=== PATIENT | female | born 1955 | race Caucasian/White ===

== ENCOUNTER 2023-02-14 09:30 | Outpatient (OUT) | payer MEDICARE, OTHER, SELFPAY ==
--- NOTE | 2023-02-14 09:35 | MM_ITS ---
Patient: HAYLEE VICENTE Exam Date: 02/14/2023 : 1955 Gender:F Ordering : DR IGNACIO DSOUZA Admission #: [id number] Family : Order #: [id number] CLICK HERE TO VIEW EXAM RADIOLOGY REPORT PROCEDURE: MM TOMOSYNTHESIS SCREENING BI COMPARISON: MG MAMM SCREEN HAYDEE W CAD, 02/27/2020. MG MAMM SCREEN 3D HAYDEE CAD, 03/17/2021. INDICATIONS: Screening Calculator Name NCI Breast Cancer Risk Assessment Tool 5 Year Breast Cancer Risk 1.50% Lifetime Breast Cancer Risk 4.80% Personal Breast Cancer No Personal Ovarian Cancer No Treatments None Family Cancers None LOCATION: [facility] BREAST COMPOSITION: Scattered areas fibroglandular density. FINDINGS: DIAGNOSTIC CATEGORY 1--NEGATIVE. NO CHANGE FROM COMPARISON ASSESSMENT. Scattered benign-appearing calcifications are present. RIGHT BREAST: No significant suspicious finding. LEFT BREAST: No significant suspicious finding. RECOMMENDATIONS: ROUTINE MAMMOGRAM AND CLINICAL EVALUATION IN 12 MONTHS. PLEASE NOTE: A NORMAL MAMMOGRAM DOES NOT EXCLUDE THE POSSIBILITY OF BREAST CANCER. A CLINICALLY SUSPICIOUS PALPABLE LUMP SHOULD BE BIOPSIED. Dictated by: Luis Nino MD on 02/14/2023 at 12:16 Approved by: Luis Nino MD on 02/14/2023 at 12:17
[2023-02-14 12:32] LABS: Alanine Aminotransferase 21 U/L (14-59); Albumin Globulin Ratio 0.9; Albumin Level 3.5 g/dL (3.4-5.0); Alkaline Phosphatase 103 U/L (46-116); Anion Gap 9.8; Aspartate Amino Transferase 16 U/L (15-37); Bilirubin Total 0.4 mg/dL (0.2-1.0); Calcium 8.7 mg/dL (8.5-10.1); Carbon Dioxide 28.9 mmol/L (21.0-32.0); Chloride 104 mmol/L (98-107); Chol HDL Ratio 3.3; Cholesterol 194 mg/dL (<=200); Estimated GFR (African America 49 (>=60); Estimated GFR (Non-African Ame 40 (>=60); Globulin 3.9 g/dL; Glucose 86 mg/dL (74-106); HDL Cholesterol 59 mg/dL (40-60); LDL Cholesterol Calculated 119.8 mg/dL; Potassium 4.7 mmol/L (3.5-5.1); Sodium 138 mmol/L (136-145); Total Protein 7.4 g/dL (6.4-8.2); Triglycerides 76 mg/dL (<=150); VLDL CHOLESTEROL 15.2 mg/dL
== END 2023-02-14 09:31 | disposition home or self-care (01) ==
LOC: MAMMO 09:30
PROVIDERS: PCP Family Medicine; Visit Provider Family Medicine
DX: Z12.31 Encounter for screening mammogram for malignant neoplasm of breast (principal); I10 Essential (primary) hypertension; E78.00 Pure hypercholesterolemia, unspecified
CPT/HCPCS: 36415; 77063; 77067; 80053; 80061

== ENCOUNTER 2024-02-23 11:00 | Outpatient (OUT) | payer MEDICARE, OTHER, SELFPAY ==
--- NOTE | 2024-02-23 11:02 | MM_ITS ---
Patient Name: HAYLEE VICENTE MR#: [id number] : 1955 Exam Date: 02/23/2024 Ordering Doctor: DR IGNACIO DSOUZA RADIOLOGY REPORT PROCEDURE: MM TOMOSYNTHESIS SCREENING BI COMPARISON: MM TOMOSYNTHESIS SCREENING BI, 02/14/2023. MG MAMM SCREEN 3D HAYDEE CAD, 03/17/2021. MG MAMM SCREEN HAYDEE W CAD, 02/27/2020. MG MAMM HAYDEE SCRN W CAD DIG, 01/07/2014. INDICATIONS: Screening Calculator Name NCI Breast Cancer Risk Assessment Tool 5 Year Breast Cancer Risk 1.50% Lifetime Breast Cancer Risk 4.50% Personal Breast Cancer No Personal Ovarian Cancer No Treatments None Family Cancers None LOCATION: [facility] BREAST COMPOSITION: There are scattered areas of fibroglandular density. FINDINGS: DIAGNOSTIC CATEGORY 1--NEGATIVE. RIGHT BREAST: No significant suspicious finding. No significant change has occurred. LEFT BREAST: No significant suspicious finding. No significant change has occurred. RECOMMENDATIONS: ROUTINE MAMMOGRAM AND CLINICAL EVALUATION IN 12 MONTHS. PLEASE NOTE: A NORMAL MAMMOGRAM DOES NOT EXCLUDE THE POSSIBILITY OF BREAST CANCER. A CLINICALLY SUSPICIOUS PALPABLE LUMP SHOULD BE BIOPSIED. Dictated by: Pierre Mullins M.D. on 02/23/2024 at 13:47 Approved by: Pierre Mullins M.D. on 02/23/2024 at 13:48
--- OUTSIDE RECORDS SUMMARY | 2024-02-23 11:05 | XMS_ITS | CCD ---
Author Organization [facility] Care Team Providers Care Client Services Administrator Name Role Phone YUNG, DR NOAM Dorsey Admitting Unavailable FURLONG, DR NOAM Dorsey Attending Unavailable FURLONG, DR NOAM Dosrey Primary Care Unavailable FURLONG, DR NOAM Dorsey Admitting Unavailable FURLONG, DR NOAM Dorsey Attending Unavailable FURLONG, DR NOAM Dorsey Consulting Unavailable FURLONG, DR NOAM Dorsey Primary Care Unavailable Furlong Noam UPTON Primary Care Provider NOAM GRANADOS Attending Unavailable FURLONG, NOAM Dorsey Referring Unavailable FURLONG, NOAM Dorsey Primary Care Unavailable FURLONGNOAM Referring Unavailable FURLONGNOAM Primary Care Unavailable Medications Current Medications Medication Drug Class(es) Dates Sig (Normalized) Sig (Original) amLODIPine 5 mg oral tablet (8 sources) Dihydropyridine Calcium Channel Sharita Start: 10-09-2022 End: 02-17-2024 take 1 tablet by mouth once daily amLODIPine (NORVASC) 5 mg tablet Indications: Essential (primary) hypertension TAKE 1 TABLET BY MOUTH EVERY DAY 90 tablet 1 02/17/2024 Active baclofen 10 mg oral tablet (8 sources) gamma-Aminobutyric Acid-ergic Agonist Start: 10-15-2023 End: 02-16-2024 take 1 tablet by mouth twice daily as needed baclofen (LIORESAL) 10 mg tablet Indications: Unspecified thoracic, thoracolumbar and lumbosacral intervertebral disc disorder TAKE 1 TABLET BY MOUTH TWICE A DAY NEEDED 180 tablet 02/16/2024 Active Start: 04-09-2023 End: 07-08-2023 take 1 tablet by mouth twice daily as needed baclofen (LIORESAL) 10 mg tablet Indications: Unspecified thoracic, thoracolumbar and lumbosacral intervertebral disc disorder take 1 tablet by mouth twice a day as needed 180 tablet 0 07/08/2023 Active calcium-vit D3-mag gly-zinc 400 mg-83.3 mcg -166.7 mg capsule (6 sources) calcium-vit D3-m ag gly-zinc 400 mg-83.3 mcg -166.7 mg capsule daily. Active calcium-vit D3-m ag gly-zinc 400 mg-83.3 mcg -166.7 mg capsule daily. 0 Active famotidine 40 mg oral tablet (7 sources) Histamine-2 Receptor Antagonist Start: 03-12-2023 End: 07-20-2023 take 1 tablet by mouth in the morning famotidine (PEPCID) 40 mg tablet Indications: Gastroesophageal reflux disease without esophagitis TAKE 1 TABLET (40 MG TOTAL) BY MOUTH IN THE MORNING 90 tablet 1 07/20/2023 Active hydrOXYzine hydrochloride 25 mg oral tablet (8 sources) Antihistamine Start: 10-15-2023 End: 02-16-2024 take 1 tablet by mouth every eight hours as needed for anxiety hydrOXYzine (ATARAX) 25 mg tablet Indications: Anxiety disorder, unspecified TAKE 1 TABLET BY MOUTH EVERY 8 HOURS NEEDED FOR ANXIETY 270 tablet 02/16/2024 Active Start: 04-09-2023 End: 07-08-2023 take 1 tablet by mouth every eight hours as needed for anxiety hydrOXYzine (ATARAX) 25 mg tablet Indications: Anxiety disorder, unspecified take 1 tablet by mouth every 8 hours as needed for anxiety 270 tablet 0 07/08/2023 Active lisinopril 40 mg oral tablet (7 sources) Angiotensin Converting Enzyme Inhibitor Start: 01-11-2023 End: 07-20-2023 take 1 tablet by mouth in the morning lisinopriL (PRINIVIL,ZESTRIL) 40 mg tablet Indications: Essential (primary) hypertension TAKE 1 TABLET (40 MG TOTAL) BY MOUTH IN THE MORNING 90 tablet 1 07/20/2023 Active lovastatin 20 mg oral tablet (7 sources) HMG-CoA Reductase Inhibitor Start: 04-09-2023 End: 07-08-2023 take 1 tablet by mouth once daily lovastatin (MEVACOR) 20 mg tablet Indications: Pure hypercholesterolemia , unspecified take 1 tablet by mouth every day 90 tablet 1 07/08/2023 Active omeprazole 20 mg delayed release oral capsule (6 sources) Proton Pump Inhibitor take 1 capsule by mouth once daily as needed for gastroesophageal reflux disease omeprazole (PriLOSEC) 20 mg capsule Take 1 capsule (20 mg total) by mouth daily as needed (heartburn). Active ubidecarenone 100 mg oral capsule (6 sources) coenzyme Q10 (COQ-10) 100 mg capsule CoQ-10 1 QD Active 24 hr venlafaxine 37.5 mg extended release oral capsule (4 sources) Serotonin and Norepinephrine Reuptake Inhibitor Start: 02-16-2023 take 1 capsule by mouth every other day venlafaxine XR (EFFEXOR XR) 37.5 mg 24 hr capsule Indications: Dysthymic disorder Take 1 capsule (37.5 mg total) by mouth every other day. 0 02/16/2023 Active Problems Active Problems Problem Classification Problem Date Documented Date Episodic/Chronic Anxiety disorders (9 sources) Anxiety; Translations: [Anxiety disorder, unspecified] Onset: 04-07-2022 04-07-2022 Chronic Chronic kidney disease (2 sources) Chronic kidney disease; Translations: [Chronic kidney disease, stage 3b] Onset: 02-16-2023 Disorders of lipid metabolism (13 sources) Pure hypercholesterolemia, unspecified; Translations: [Hypercholesterolemia] Onset: 04-04-2022 Chronic Esophageal disorders (8 sources) Gastroesophageal reflux disease; Translations: [Gastro-esophageal reflux disease without esophagitis] Onset: 04-07-2022 04-07-2022 Chronic Essential hypertension (11 sources) Essential (primary) hypertension; Translations: [Essential hypertension] Onset: 11-23-2015 04-07-2022 Chronic Hypertension with complications and secondary hypertension (8 sources) Hypertensive renal disease; Translations: [Hypertensive chronic kidney disease with stage 1 through stage 4 chronic kidney disease, or unspecified chronic kidney disease] Onset: 02-16-2023 02-16-2023 Chronic Mood disorders (6 sources) Chronic depression; Translations: [Chronic depression] Onset: 12-07-2015 Resolved: 12-07-2023 04-07-2022 Chronic Nonmalignant breast conditions (6 sources) Fibrocystic disease of breast; Translations: [Diffuse cystic mastopathy of unspecified breast] Onset: 04-07-2022 04-07-2022 Chronic Other nutritional; endocrine; and metabolic disorders (2 sources) Obesity caused by energy imbalance; Translations: [Class 1 obesity due to excess calories with serious comorbidity and body mass index (BMI) of 34.0 to 34.9 in adult] Onset: 12-07-2023 12-07-2023 Chronic Spondylosis; intervertebral disc disorders; other back problems (8 sources) Disorder of lumbar disc; Translations: [Unspecified thoracic, thoracolumbar and lumbosacral intervertebral disc disorder] Onset: 04-07-2022 04-07-2022 Chronic Thyroid disorders (1 source) Hypothyroidism Onset: 12-07-2023 Chronic Past or Other Problems Problem Classification Problem Date Documented Da te Episodic/Chronic Joint disorders and dislocations; trauma-related (12 sources) Dislocation of hand joint; Translations: [Dislocation of hand joint] Onset: 2 04-07-2022 Episodic Mood disorders (6 sources) Mood disorders Onset: 3 Resolved: 4 02-16-2023 Open wounds of extremities (6 sources) Laceration of finger; Translations: [Laceration without foreign body of unspecified finger without damage to nail, initial encounter] Onset: 2 04-07-2022 Episodic Other and unspecified benign neoplasm (6 sources) Tubular adenoma ; Translations: [Benign neoplasm, unspecified site] Onset: 6 04-07-2022 Episodic Other bone disease and musculoskeletal deformities (6 sources) Osteopenia; Translations: [Other specified disorders of bone density and structure, unspecified site] Onset: 1 04-07-2022 Episodic Other diseases of bladder and urethra (6 sources) Urethral stenosis; Translations: [Urethral stenosis] Onset: 2 04-07-2022 Episodic Other injuries and conditions due to external causes (6 sources) Injury of wrist; Translations: [Unspecified injury of unspecified wrist, hand and finger(s), initial encounter] Onset: 2 04-07-2022 Episodic Phlebitis; thrombophlebitis and thromboembolism (6 sources) Superficial thrombophlebitis; Translations: [Phlebitis and thrombophlebitis of unspecified site] Onset: 8 04-07-2022 Episodic Viral infection (6 sources) Dwight-Winston virus hepatitis; 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 ([id number]) [address], [address] [place] [address] Hematocrit (Bld) [Volume fraction] 34.1 % Low 35-47 [facility] Comment on above: Performed By: #### C BC, CMP, 15677-8, 59883-6, 2777-1, 3084-1, 2731-8, 51403-2 #### [facility] ([id number]) [address], [address] [place] [address] Hemoglobin (Bld) [Mass/Vol] 11.3 g/dL Low 11.7-15.5 [facility] Comment on above: Performed By: #### C BC, CMP, 82573-4, 56723-1, 2777-1, 3084-1, 2731-8, 32470-2 #### [facility] ([id number]) [address], [address] [place] [address] MCH (RBC) [Entitic mass] 28.1 pg Normal 27-34 [facility] Comment on above: Performed By: #### C BC, CMP, 63186-0, 76868-6, 2777-1, 3084-1, 2731-8, 15069-2 #### [facility] ([id number]) [address], [address] [place] [address] MCHC (RBC) [Mass/Vol] 33.2 g/dL Normal 32-36 [facility] Comment on above: Performed By: #### C BC, CMP, 40817-6, 95483-9, 2777-1, 3084-1, 2731-8, 29930-1 #### [facility] ([id number]) [address], [address] [place] [address] MCV (RBC) [Entitic vol] 85 fL Normal 80-100 [facility] Comment on above: Performed By: #### C BC, CMP, 01963-8, 54712-6, 2777-1, 3084-1, 2731-8, 56801-8 #### [facility] ([id number]) [address], [address] [place] [address] Platelet mean volume (Bld) [Entitic vol] 7.8 fL Normal 7-12 [facility] Comment on above: Performed By: #### C BC, CMP, 80314-5, 11198-4, 2777-1, 3084-1, 2731-8, 79180-5 #### [facility] ([id number]) [address], [address] [place] [address] Platelets (Bld) [#/Vol] 285 10*3/uL Normal 150-450 [facility] Comment on above: Performed By: #### C BC, CMP, 03854-8, 29526-9, 2777-1, 3084-1, 2731-8, 86361-5 #### [facility] ([id number]) [address], [address] [place] [address] RBC COUNT 4.02 X10E12/L Normal 3.80-5.[address] [facility] Comment on above: Performed By: #### C BC, CMP, 24969-4, 02429-3, 2777-1, 3084-1, 2731-8, 03456-3 #### [facility] ([id number]) [address], [address] [place] [address] WBC (Bld) [#/Vol] 5.7 10*3/uL Normal 4.0-11.0 [facility] Comment on above: Performed By: #### C BC, CMP, 20758-6, 66239-2, 2777-1, 3084-1, 2731-8, 91646-0 #### [facility] ([id number]) [address], [address] [place] [address] COMPREHENSIVE METABOLIC PANE Tommy 12-07-2023 Albumin [Mass/Vol] 4.1 g/dL Normal 3.2-5.3 [facility] Comment on above: Performed By: #### C BC, CMP, 49997-6, 78695-7, 2777-1, 3084-1, 2731-8, 23114-0 #### [facility] ([id number]) [address], [address] [place] [address] ALP [Catalytic activity/Vol] 85 U/L Normal 39-130 [facility] Comment on above: Performed By: #### C BC, CMP, 99700-8, 31589-6, 2777-1, 3084-1, 2731-8, 65970-9 #### [facility] ([id number]) [address], [address] [place] [address] ALT [Catalytic activity/Vol] 16 U/L Normal 0-31 [facility] Comment on above: Performed By: #### C BC, CMP, 34509-4, 96197-9, 2777-1, 3084-1, 2731-8, 67159-0 #### [facility] ([id number]) [address], [address] [place] [address] Anion gap [Moles/Vol] 8 mmol/L Normal 5-15 [facility] Comment on above: Performed By: #### C BC, CMP, 35923-2, 91729-0, 2777-1, 3084-1, 2731-8, 28069-0 #### [facility] ([id number]) [address], [address] [place] [address] AST [Catalytic activity/Vol] 18 U/L Normal 0-41 [facility] Comment on above: Performed By: #### C BC, CMP, 99471-5, 00782-5, 2777-1, 3084-1, 2731-8, 10173-5 #### [facility] ([id number]) [address], [address] [place] [address] Bilirubin [Mass/Vol] 0.4 mg/dL Normal 0.3-1.2 [facility] Comment on above: Performed By: #### C BC, CMP, 46059-6, 36417-0, 2777-1, 3084-1, 2731-8, 51486-0 #### [facility] ([id number]) [address], [address] [place] [address] Calcium [Mass/Vol] 9.5 mg/dL Normal 8.5-10.5 [facility] Comment on above: Performed By: #### C BC, CMP, 36328-0, 27289-4, 2777-1, 3084-1, 2731-8, 53942-1 #### [facility] ([id number]) [address], [address] [place] [address] Chloride [Moles/Vol] 106 mmol/L Normal 98-109 [facility] Comment on above: Performed By: #### C BC, CMP, 15547-0, 10608-6, 2777-1, 3084-1, 2731-8, 71475-5 #### [facility] ([id number]) [address], [address] [place] [address] CO2 [Moles/Vol] 26 mmol/L Normal 22-32 [facility] Comment on above: Performed By: #### C BC, CMP, 92864-3, 03309-3, 2777-1, 3084-1, 2731-8, 04811-7 #### [facility] ([id number]) [address], [address] [place] [address] Creatinine [Mass/Vol] 1.23 mg/dL High 0.40-1.00 [facility] Comment on above: Result Comment: METH OD TRACEABLE TO IDMS STANDARD Performed By: #### C AMANDA, CMP, 88671-2, 33872-1, 2777-1, 3084-1, 2731-8, 93165-7 #### [facility] ([id number]) [address], [address] [place] [address] GFR/1.73 sq M.predicted among non-blacks MDRD (S/P/Bld) [Vol rate/Area] 48 mL/min/{1.73_m2} Low >59 [facility] Comment on above: Result Comment: Reported eGFR is based on the CKD-EPI 2020 equation that does not use a race coefficient. Performed By: #### C AMANDA, RAFAT, 00324-2, 64172-3, 2777-1, 3084-1, 2731-8, 69369-2 #### [facility] ([id number]) [address], [facility] [address] [place] [address] Glucose [Mass/Vol] 81 mg/dL Normal 65-99 [facility] Comment on above: Performed By: #### C RAFAT PATEL, 03098-7, 07952-3, 2777-1, 3084-1, 2731-8, 41578-9 #### [facility] ([id number]) [address], [address] [place] [address] Potassium [Moles/Vol] 4.7 mmol/L Normal 3.5-5.0 [facility] Comment on above: Performed By: #### C AMANDA, CMP, 17862-2, 82246-2, 2777-1, 3084-1, 2731-8, 88511-1 #### [facility] ([id number]) [address], [address] [place] [address] Protein [Mass/Vol] 7.1 g/dL Normal 6.0-8.0 [facility] Comment on above: Performed By: #### C BC, CMP, 42991-9, 69058-4, 2777-1, 3084-1, 2731-8, 05331-6 #### [facility] ([id number]) [address], [address] [place] [address] Sodium [Moles/Vol] 140 mmol/L Normal 134-146 [facility] Comment on above: Performed By: #### C BC, CMP, 22496-3, 64315-4, 2777-1, 3084-1, 2731-8, 53507-4 #### [facility] ([id number]) [address], [address] [place] [address] Urea nitrogen [Mass/Vol] 16 mg/dL Normal 5-27 [facility] Comment on above: Performed By: #### C BC, CMP, 88317-5, 63043-1, 2777-1, 3084-1, 2731-8, 73032-6 #### [facility] ([id number]) [address], [address] [place] [address] Lipid 1996 panelon 4 Cholesterol [Mass/Vol] 193 mg/dL Normal 150-200 [facility] Comment on above: Performed By: #### C BC, CMP, 30216-1, 74985-9, 2777-1, 3084-1, 2731-8, 34563-4 #### [facility] ([id number]) [address], [address] [place] [address] Cholesterol in HDL [Mass/Vol] 50 mg/dL Normal >39 [facility] Comment on above: Result Comment: HDL <40 mg/dL - High Risk HDL > or = 40mg/dL- Desirable HDL >60 mg/dL - Negative Risk Performed By: #### Robyn BC, CMP, 63276-5, 86540-0, 2777-1, 3084-1, 2731-8, 74629-0 #### [facility] ([id number]) [address], [address] [place] [address] Cholesterol in LDL [Mass/Vol] 125 mg/dL Normal <130 [facility] Comment on above: Result Comment: LDL <100 mg/dL - Desirable LDL >160 mg/dL - High Risk Performed By: #### Robyn BC, CMP, 18887-0, 70742-2, 2777-1, 3084-1, 2731-8, 28413-4 #### [facility] ([id number]) [address], [address] [place] [address] Cholesterol in VLDL [Mass/Vol] 18 mg/dL Normal 0-30 [facility] Comment on above: Performed By: #### Robyn BC, CMP, 63979-3, 12674-7, 2777-1, 3084-1, 2731-8, 28798-2 #### [facility] ([id number]) [address], [address] [address] CHOLESTEROL:HDL 3.9 Normal 1.0-5.0 [facility] Comment on above: Performed By: #### Robyn BC, CMP, 05084-2, 31212-0, 2777-1, 3084-1, 2731-8, 85660-2 #### [facility] ([id number]) [address], [address] [place] [address] Triglyceride [Mass/Vol] 88 mg/dL Normal 27-150 [facility] Comment on above: Performed By: #### Robyn BC, CMP, 72800-1, 71519-9, 2777-1, 3084-1, 2730-8, 37355-6 #### [facility] ([id number]) [address], [address] [place] [address] MAGNESIUMon 12-07-2023 Magnesium [Mass/Vol] 1.9 mg/dL Normal 1.8-2.6 [facility] Comment on above: Performed By: #### C BC, CMP, 01344-6, 14656-6, 2776-, 3083-, 2730-8, 27046-8 #### [facility] ([id number]) [address] [place] [address] MICROALBUMIN - ALBUMIN:CREAT ININE URINE RATIOon 12-07-2023 ALB/CREAT RATIO NOT CALCULATED Normal 0.0-30.0 [facility] Comment on above: Result Comment: Result for Albumin/Creatinine Ratio cannot be reliably calculated because urine albumin and or urine creatinine is below the detection limit of the assay. Performed By: #### M ALBU #### [facility] ([id number]) [address], [address] [place] [address] Albumin DL <= 20 mg/L (U) [Mass/Vol] mg/dL Normal 0.0-1.9 [facility] Comment on above: Performed By: #### M ALBU #### [facility] ([id number]) [address], [address] [place] [address] URINE CREAT 31.82 mg/dL Normal [facility] Comment on above: Performed By: #### M ALBU #### [facility] ([id number]) [address], [address] [place] [address] PHOSPHORUSon 12-07-2023 Phosphate [Mass/Vol] 3.6 mg/dL Normal 2.4-4.9 [facility] Comment on above: Performed By: #### C BC, CMP, 23115-2, 90303-9, 2776-, 3084-1, 2731-8, 43612-3 #### [facility] ([id number]) [address], [address] [place] [address] Parathyrin.intact [Mass/Vol] on 12-07-2023 PTH INTACT 104 pg/mL High 12-88 [facility] Comment on above: Performed By: #### C AMANDA, RAFAT, 77692-1, 63912-3, 7-1, 3084-1, 2731-8, 50124-2 #### [facility] ([id number]) [address], [address] [place] [address] URIC ACIDon 12-07-2023 Urate [Mass/Vol] 7.3 mg/dL High 2.6-7.2 [facility] Comment on above: Performed By: #### Robyn PATEL, RAFAT, 28050-8, 42759-4, 2776-, 308-, 273-8, 14631-0 #### [facility] ([id number]) [address], [address] [place] [address] Vitamin D+Metabolites [Mass/ Vol]on 12-07-2023 VITAMIN D 25 HYD TOT 39.3 ng/mL Normal 30-100 [facility] Comment on above: Result Comment: Vitamin D status 25 [place] Vitamin D Deficiency <20 ng/mL Insufficiency 20-29 ng/mL Sufficiency 30-100 ng/mL Toxicity >100 ng/mL NOTE: A pediatric reference range has not been established by the tattoo identifier of this kit. The [place] [employer] recommends a Vitamin D level of = or >20ng/mL in infants and children. Performed By: #### Robyn PATEL, CMP, 81150-1, 34360-9, 7-1, 3084-1, 2731-8, 56449-5 #### [facility] ([id number]) [address] [facility], [address] [place] [address] LIPID PROFILEon 04-04-2022 CHOL-HDL RATIO NORM SEE BELOW Normal [facility] Comment on above: Result Comment: 3.3 - 4.4 LOW RISK 4.4 - 7.1 AVERAGE RISK 7.1 - 11.0 MODERATE RISK >11.0 HIGH RISK Performed By: #### L IPID, CMP #### [facility] [address] [address] [address] Kiara Enrique Cholesterol [Mass/Vol] 180 mg/dL Normal <=200 [facility] Comment on above: Performed By: #### L IPID, CMP #### [facility] [address] [address] [address] Kiara Enrique Cholesterol in HDL [Mass/Vol] 61 mg/dL Critically high 40-60 [facility] Comment on above: Performed By: #### L IPID, CMP #### [facility] [address] [address] [address] Kiara Enrique Cholesterol in LDL [Mass/Vol] 104.2 mg/dL Normal [facility] Comment on above: Performed By: #### L IPID, CMP #### [facility] [address] [address] [address] Kiara Enrique Cholesterol.total/C holesterol in HDL [Mass ratio] 3.0 {ratio} Normal [facility] Comment on above: Performed By: #### L IPID, CMP #### [facility] [address] [address] [address] Kiara Enrique HDL NORMAL > or = 60 mg/dl - LOW CARDIOVASCULAR RISK <40 mg/dl - HIGH CARDIOVASCULAR RISK Normal [facility] Comment on above: Performed By: #### L IPID, CMP #### [facility] [id number] Kiara Enrique LDL CALC NORMAL SEE BELOW Normal [facility] Comment on above: Result Comment: <100 mg/dl OPTIMAL 100 - 129 mg/dl NEAR OR ABOVE OPTIMAL 130 - 159 mg/dl BORDERLINE HIGH 160 - 189 mg/dl HIGH >190 mg/dl VERY HIGH Performed By: #### L IPID, CMP #### [facility] [address] [address] [address] Kiara Enrique Triglyceride [Mass/Vol] 74 mg/dL Normal <=150 [facility] Comment on above: Performed By: #### L IPID, CMP #### [facility] [address] [address] [address] Kiara Enrique VLDL CALC 14.8 mg/dL Normal [facility] Comment on above: Performed By: #### L IPID, CMP #### [facility] [address] [address] [address] Kiara Enrique PROF 14(COMP METB)on 022 Albumin [Mass/Vol] 3.6 g/dL Normal 3.4-5.0 [facility] Comment on above: Performed By: #### L IPID, CMP #### [facility] [address] [place] [address] Dr. Kiara Enrique Albumin/Globulin [Mass ratio] 0.9 {ratio} Normal [facility] Comment on above: Performed By: #### L IPID, CMP #### [facility] [address] [place] [address] Dr. Kiara Enrique ALP [Catalytic activity/Vol] 96 U/L Normal 46-116 [facility] Comment on above: Performed By: #### L IPID, CMP #### [facility] [address] [place] [address] Dr. Kiara Enrique ALT [Catalytic activity/Vol] 19 U/L Normal 14-59 [facility] Comment on above: Performed By: #### L IPID, CMP #### [facility] [address] [place] [address] Dr. Kiara Enrique Anion gap [Moles/Vol] 11.6 mmol/L Normal [facility] Comment on above: Performed By: #### L IPID, CMP #### [facility] [address] [place] [address] Dr. Kiara Enrique AST [Catalytic activity/Vol] 19 U/L Normal 15-37 [facility] Comment on above: Performed By: #### L IPID, CMP #### [facility] [address] [address] [address] Kiara Enrique Bilirubin [Mass/Vol] 0.2 mg/dL Normal 0.2-1.0 [facility] Comment on above: Performed By: #### L IPID, CMP #### [facility] [address] [address] [address] Kiara Enrique Calcium [Mass/Vol] 9.1 mg/dL Normal 8.5-10.1 [facility] Comment on above: Performed By: #### L IPID, CMP #### [facility] [address] [address] [address] Kiara Enrique Chloride [Moles/Vol] 105 mmol/L Normal 98-107 [facility] Comment on above: Performed By: #### L IPID, CMP #### [facility] [address] [place] [address] Dr. Kiara Enrique CO2 [Moles/Vol] 29.5 mmol/L Normal 21.0-32.0 [facility] Comment on above: Performed By: #### L IPID, CMP #### [facility] [address] [address] [address] Kiara Enrique Creatinine [Mass/Vol] 1.29 mg/dL Critically high 0.55-1.02 [facility] Comment on above: Performed By: #### L IPID, CMP #### [facility] [address] [address] [address] Kiara Enrique EGFR-AF MALAYSIAN 50 mL/min/1.73m2 Critically low >=60 [facility] Comment on above: Performed By: #### L IPID, CMP #### [facility] [address] [address] [address] Kiara Enrique EGFR-NON AF MALAYSIAN 41 mL/min/1.73m2 Critically low >=60 [facility] Comment on above: Performed By: #### L IPID, CMP #### [facility] [address] [address] [address] Kiara Enrique Globulin (S) [Mass/Vol] 4.0 g/dL Normal [facility] Comment on above: Performed By: #### L IPID, CMP #### [facility] [address] [address] [address] Kiara Enrique Glucose [Mass/Vol] 85 mg/dL Normal 74-106 [facility] Comment on above: Performed By: #### L IPID, CMP #### [facility] [address] [address] [address] Kiara Enrique Potassium [Moles/Vol] 5.1 mmol/L Normal 3.5-5.1 [facility] Comment on above: Performed By: #### L IPID, CMP #### [facility] [address] [address] [address] Kiara Enrique Protein [Mass/Vol] 7.6 g/dL Normal 6.4-8.2 [facility] Comment on above: Performed By: #### L IPID, CMP #### [facility] [address] [place] [address] Dr. Kiara Enrique Sodium [Moles/Vol] 141 mmol/L Normal 136-145 [facility] Comment on above: Performed By: #### L IPID, CMP #### [facility] [address] [address] [address] Kiara Enrique Urea nitrogen [Mass/Vol] 25.0 mg/dL Critically high 7.0-18.0 [facility] Comment on above: Performed By: #### L IPID, CMP #### [facility] [address] [place] [address] Dr. Kiara Enrique Urea nitrogen/Creatinine [Mass ratio] 19.4 mg/mg Normal [facility] Comment on above: Performed By: #### L IPID, CMP #### [facility] [address] [place] [address] Dr. Kiara Enrique COMPREHENSIVE METABOLIC PANE Tommy 10-15-2020 Albumin [Mass/Vol] 4.1 g/dL Normal 3.6-5.1 [facility] Comment on above: Performed By: #### 1 0231, 5260 #### [facility] [address], [address] [place] [address] Doorperson: Jerry Luque MD Albumin/Globulin [Mass ratio] 1.5 {ratio} Normal 1.0-2.5 [facility] Comment on above: Performed By: #### 1 023, 7600 #### [facility] of [address] [place] [address] Doorperson: Jerry Luque MD ALP [Catalytic activity/Vol] 68 U/L Normal 37-153 [facility] Comment on above: Performed By: #### 1 023, 7600 #### [facility] [address] [place] [address] Doorperson: Jerry Luque MD ALT [Catalytic activity/Vol] 11 U/L Normal 6-29 [facility] Comment on above: Performed By: #### 1 023, 7600 #### [facility] [address] [place] [address] Doorperson: Jerry Luque MD AST [Catalytic activity/Vol] 15 U/L Normal 10-35 [facility] Comment on above: Performed By: #### 1 023, 0 #### [facility] [address] [place] [address] Doorperson: Jerry Luque MD Bilirubin [Mass/Vol] 0.4 mg/dL Normal 0.2-1.2 [facility] Comment on above: Performed By: #### 1 023, 7600 #### [facility] [address] [place] [address] Doorperson: Jerry Luque MD Calcium [Mass/Vol] 9.1 mg/dL Normal 8.6-10.4 [facility] Comment on above: Performed By: #### 1 0231, 7600 #### [facility] [place] [address] Doorperson: Jerry Luque MD Chloride [Moles/Vol] 105 mmol/L Normal 98-110 [facility] Comment on above: Performed By: #### 1 0231, 7600 #### [facility] [address] [address] Doorperson: Jerry Luque MD CO2 [Moles/Vol] 26 mmol/L Normal 20-32 [facility] Comment on above: Performed By: #### 1 023, 7600 #### [facility] [address] [place] [address] Doorperson: Jerry Luque MD Creatinine [Mass/Vol] 1.02 mg/dL High 0.50-0.99 [facility] Comment on above: Result Comment: For patients >49 years of age, the reference limit for Creatinine is approximately 13% higher for people identified as -Liberian. Performed By: #### 1 230, 7600 #### [facility] [place] [address] Doorperson: Jerry Luque MD eGFR NON-AFR. MALAYSIAN 57 mL/min/1.73m2 Low > OR = 60 [facility] Comment on above: Performed By: #### 1 230, 7600 #### [facility] [place] [address] Doorperson: Jerry Luque MD GFR/1.73 sq M.predicted among blacks MDRD (S/P/Bld) [Vol rate/Area] 66 mL/min/{1.73_m2} Normal > OR = 60 [facility] Comment on above: Performed By: #### 1 230, 7600 #### [facility] [place] [address] Doorperson: Jerry Luque MD Globulin (S) [Mass/Vol] 2.7 g/dL Normal 1.9-3.7 [facility] Comment on above: Performed By: #### 1 023, 7600 #### [facility] [place] [address] Doorperson: Jerry Luque MD Glucose [Mass/Vol] 84 mg/dL Normal 65-99 [facility] Comment on above: Result Comment: Fasting reference interval Performed By: #### 1 0231, 7600 #### [facility] of [address], [address] [place] [address] Doorperson: Jerry Luque MD Potassium [Moles/Vol] 4.7 mmol/L Normal 3.5-5.3 [facility] Comment on above: Performed By: #### 1 0231, 7600 #### [facility] of [address], [address] [place] [address] Doorperson: Jerry Luque MD Protein [Mass/Vol] 6.8 g/dL Normal 6.1-8.1 [facility] Comment on above: Performed By: #### 1 0231, 7600 #### [facility] of [address], [address] [place] [address] Doorperson: Jerry Luque MD Sodium [Moles/Vol] 140 mmol/L Normal 135-146 [facility] Comment on above: Performed By: #### 1 0231, 7600 #### [facility] of [address], [address] [place] [address] Doorperson: Jerry Luque MD Urea nitrogen [Mass/Vol] 15 mg/dL Normal 7-25 [facility] Comment on above: Performed By: #### 1 0231, 7600 #### [facility] of [address], [address] [place] [address] Doorperson: Jerry Luque MD Urea nitrogen/Creatinine [Mass ratio] 15 mg/mg Normal 6-22 [facility] Comment on above: Performed By: #### 1 0231, 7600 #### [facility] of [address], [address] [place] [address] Doorperson: Jerry Luque MD LIPID PANEL, STANDARD Cholesterol [Mass/Vol] 210 mg/dL High <200 [facility] Comment on above: Order Comment: FASTI NG:YES FASTING: YES Performed By: #### 1 0231, 7600 #### [facility] of [address], [address] [place] [address] Doorperson: Jerry Luque MD Cholesterol in HDL [Mass/Vol] 66 mg/dL Normal > OR = 50 [facility] Comment on above: Order Comment: FASTI NG:YES FASTING: YES Performed By: #### 1 023, 7600 #### [facility] [address], [address] [place] [address] Doorperson: Jerry Luque MD Cholesterol in LDL [Mass/Vol] 122 mg/dL High [facility] Comment on above: Order Comment: FASTI NG:YES FASTING: YES Result Comment: Refe rence range: <100 Desirable range <100 mg/dL for primary prevention; <70 mg/dL for patients with CHD or diabetic patients with > or = 2 CHD risk factors. LDL-C is now calculated using the Blanca calculation, which is a validated novel method providing better accuracy than the Friedewald equation in the estimation of LDL-C. Wilian SS et al. SIOBHAN. 2013;310(19): 6311-2376 (http://education.[employer]/faq/YUL827) Performed By: #### 1 023, 0 #### [facility] [address] [place] [address] Doorperson: Jerry Luque MD Cholesterol.total/C holesterol in HDL [Mass ratio] 3.2 {ratio} Normal <5.0 [facility] Comment on above: Order Comment: FASTI NG:YES FASTING: YES Performed By: #### 1 023, 0 #### [facility] [place] [address] Doorperson: Jerry Luque MD NON HDL CHOLESTEROL 144 mg/dL (calc) High <130 [facility] Comment on above: Order Comment: FASTI NG:YES FASTING: YES Result Comment: For patients with diabetes plus 1 major ASCVD risk factor, treating to a non-HDL-C goal of <100 mg/dL (LDL-C of <70 mg/dL) is considered a therapeutic option. Performed By: #### 1 023, 7600 #### [facility] [address], [address] [place] [address] Doorperson: Jerry Luque MD Triglyceride [Mass/Vol] 109 mg/dL Normal <150 [facility] Comment on above: Order Comment: FASTI NG:YES FASTING: YES Performed By: #### 1 0231, 7600 #### [facility] [address] [facility], [address] [place] [address] Doorperson: Jerry Luque MD Encounters Encounter Date Encounter Type Care Provider Facility Start: 02-17-2024 End: 02-17-2024 Refill Noam Granados DO [facility] Comment on above: Essential (primary) hypertension Start: 02-16-2024 End: 02-16-2024 Refill Noam Granados DO Work Phone: [facility] Comment on above: Anxiety disorder, un specified; Unspecified thoracic, thoracolumbar and lumbosacral intervertebral disc disorder Start: 12-07-2023 End: 12-07-2023 ambulatory NOAM GRANADOS [facility] Start: 07-19-2023 Refill Noam Rios ng DO Work Phone: [facility] Comment on above: Essential (primary) hypertension; Gastroesophageal reflux disease without esophagitis Start: 07-11-2023 Refill Noam Rios ng DO Work Phone: [facility] Comment on above: Essential (primary) hypertension Start: 07-08-2023 Refill Noam Hamlo ng DO Work Phone[facility] Comment on above: Pure hypercholestero lemia, unspecified; Unspecified thoracic, thoracolumbar and lumbosacral intervertebral disc disorder; Anxiety disorder, unspecified Start: 06-19-2023 Telephone encounter Romi Carlson [facility] Comment on above: Preventative Screeni ng Start: 04-04-2022 End: 04-05-[address] NOAM GRANADOS Facility:[facility] Start: 11-21-[address] NOAM GRANADOS Fac ility:[facility] Procedures Date Procedure Procedure Detail Performing Clinician Start: 12-07-2023 Adult depression scr eening assessment Noam Granados DO Work Phone: Start: 02-16-2023 Adult depression scr eening assessment Romi Bustos [facility] Start: 02-14-2023 Mammography Romi de la paz [facility] Plan of Treatment Date Care Activity Detail Author Start: 12-06-2024 Adult BMI Screening Adult BMI Screen ing [facility] Start: 12-06-2024 Depression Screening Depression Scre ening [facility] Start: 12-06-2024 Fall Risk Screening Fall Risk Screen ing [facility] [employer] [facility] Start: 12-06-2024 Tobacco Screening Tobacco Screening [facility] Start: 04-17-2024 Administration of varicella zoster vaccine Zoster (Shingles) Vaccine (2 of 3) [facility] Comment on above: Postponed from 04/12 (Patient Refused) Start: 02-17-2024 Adult BMI Screening Adult BMI Screen ing [facility] [employer] [facility] Start: 02-17-2024 Depression Screening Depression Scre ening [facility] [facility] Start: 02-17-2024 Tobacco Screening Tobacco Screening [facility] [facility] Start: 02-15-2024 Screening for malign ant neoplasm of breast Mammogram [facility] Start: 12-17-2023 Influenza vaccination Influenza Vacc ine [facility] Start: 11-14-2023 End: 11-14-2023 Patient encounter procedure 11/14/2023 2:00 PM EDT [facility] [address] [place] [address] [facility] Start: 11-11-2023 Fall Risk Screening Fall Risk Screen ing [facility] [employer] [facility] Start: 11-11-2023 Medicare Annual Well ness Visit Medicare Annual Wellness Visit [facility] Start: 08-25-2023 End: 08-25-2023 Patient encounter procedure 08/25/2023 11:00 AM EDT [facility] [address] [place] [address] Noam Granados, DO [address] [facility] [place] [address] [facility] Start: 12-16-2022 Influenza vaccination Influenza Vacc ine [facility] Start: 04-12-2016 Administration of varicella zoster vaccine Zoster (Shingles) Vaccine (2 of 3) [facility] Start: 1999 Screening for malign ant neoplasm of colon Colon Cancer Screening 3 Year Cologuard [facility] Start: 1973 DTaP,Tdap and Td Vac cines (1 - Tdap) DTaP,Tdap and Td Vaccines (1 - Tdap) [facility] Start: 01-15-1972 Adult BMI Follow Up Plan Adult BMI Follow Up Plan [facility] Immunizations Immunization Date Immunization Notes Care Provider Fa cility 02-11-2019 pneumococcal conjuga te vaccine, 13 valent Romi [facility] 02-05-2019 influenza, high dose seasonal, preservative-free Romi [facility] 02-05-2019 influenza virus vaccine, unspecified formulation Romi [facility] 02-23-2018 influenza, injectabl e, quadrivalent, preservative free Romi [facility] 03-08-2017 Influenza, injectabl e, Madin [place] Canine Kidney, preservative free, quadrivalent Romi [facility] 02-16-2016 zoster vaccine, live Romi [facility] 02-16-2016 zoster vaccine, unspecified formulation Romi [facility] 01-29-2016 influenza, seasonal, injectable, preservative free Romi [facility] 01-06-2016 zoster vaccine, live Romi [facility] 02-18-2015 influenza, seasonal, injectable, preservative free Romi [facility] 03-23-2013 influenza, seasonal, injectable Romi [facility] Payers Date Payer Category Payer Managed Care Other (unspecified) [employer] [id number] 2019 Unknown [employer] [id number] 2019-Present [phone] [id number] [place] [address] [id number] 2019 Unknown [id number] 2018 Medicare [id number] 1959 Medicare [id number] 1959 Self-pay 1959 Unknown [id number] 1954 Unknown [id number] 1954 Unknown [id number] 1954 Unknown [id number] 1954 Unknown [id number] Social History Date Type Detail Facility Start: 04-07-2022 [facility] Start: 04-07-2022 Tobacco use and exposure Smoke less tobacco non-user [facility] Start: 02-16-2023 End: 12-07-2023 Alcohol intake Ex-drinker (finding) [facility] Start: 04-07-2022 End: 11-10-2022 History of Social function [facility] Start: 04-07-2022 End: 11-10-2022 Social connection and isolation panel [facility] Do you belong to any clubs or organizations such as moravian groups, unions, fraternal or athletic groups, or school groups? No [facility] Are you now , , , , never or living with a partner? [facility] How often to you hav e a drink containing alcohol? Never [facility] How many standard dr inks containing alcohol do you have on a typical day? Patient does not drink [facility] Do you feel stress - tense, restless, nervous, or anxious, or unable to sleep at night because your mind is troubled all the time - these days [OSQ] Only a little [facility] Start: 1955 Sex Assigned At Not on file P [facility] Start: 11-20-2014 Sex Female (finding) [facility] Clinical Notes 06-19-2023 to 07-19-2023 Telephone Encounter - Noam Granados DO - 07/19/2023 4:12 PM EDTTelephone Encounter - Cecy Matos CMA - 07/19/2023 4:12 PM EDTTelephone Encounter - Noam Granados DO - 07/19/2023 4:12 PM EDT Note Date & Type Note Facility 07-19-2023 Miscellaneous Notes Formattin g of this note might be different from the original. Rx sent in. She is due for appt next month LM to CB that she is due for her wellness next month documented in this encounter [facility] 07-19-2023 Telephone encount er Note Rx sent in. She is due for appt next month [facility] 07-19-2023 Telephone encount er Note LM to CB that she is due for her wellness next month [facility] 06-19-2023 Miscellaneous Notes Formattin g of this note might be different from the original. Left message for patient to contact healthcare translator. Patient is overdue with cologuard order. Will send letter to patient. documented in this encounter [facility] 06-19-2023 Telephone encount er Note Left message for patient to contact healthcare translator. Patient is overdue with cologuard order. Will send letter to patient. [facility] Evaluation note Diagnosis Pure hypercholesterolemia, unspecified Unspecified thoracic, thoracolumbar and lumbosacral intervertebral disc disorder Anxiety disorder, unspecified documented in this encounter [facility] Diagnosis Essential (primary) hypertension Unspecified essential hypertension [facility] Diagnosis Essential (primary) hypertension Unspecified essential hypertension Gastroesophageal reflux disease without esophagitis Esophageal reflux [facility] Diagnosis Anxiety disorder, unspecified Unspecified thoracic, thoracolumbar and lumbosacral intervertebral disc disorder documented in this encounter [facility] Diagnosis Essential (primary) hypertension Unspecified essential hypertension [facility] filedocumented in this encounter [facility] filedocumented in this encounter [facility] filedocumented in this encounter [facility] filedocumented in this encounter [facility] filedocumented in this encounter [facility] Summary Purpose Family History No Family History Records FoundNo Family History Records FoundNo Family History Records FoundNo Family History Records Found Advance Directives No Advanced Directives Records FoundNo Advanced Directives Records FoundNo Advanced Directives Records FoundNo Advanced Directives Records Found Additional Source Comments INFORMATION SOURCE (unrecogn ized section and content) DATE CREATED AUTHOR 02/14/2021 [facility] DATE CREATED AUTHOR AUTHOR'S ORGANIZ ATION 04/13/2022 [facility] DATE CREATED AUTHOR AUTHOR'S ORGANIZ ATION 12/09/2023 [facility] DATE CREATED AUTHOR AUTHOR'S ORGANIZ ATION 12/09/2023 [facility] Reason for Visit (unrecogniz ed section and content) Reason Onset Date Comments Preventative Screening 06/19/2023 Reason Comments Med Refill Care Teams (unrecognized sec tion and content) Client Services Administrator Relationship Specialty Start Date End Date Noam Granados DO [address] [place] [address] PCP - General Family Medicine 03/07/22 Client Services Administrator Relationship Specialty Start Date End Date Noam Granados DO [address] [place] [address] PCP - General Family Medicine 03/07/22 Client Services Administrator Relationship Specialty Start Date End Date Noam Granados DO [address] [place] [address] PCP - General Family Medicine 03/07/22 Client Services Administrator Relationship Specialty Start Date End Date Noam Granados DO [address] [place] [address] PCP - General Family Medicine 11/21/22 FOR RECORDS PERTAINING TO PATIENTS WHO ARE OR HAVE BEEN ENROLLED IN A CHEMICAL DEPENDENCY/SUBSTANCEABUSE PROGRAM, SOME INFORMATION MAY BE OMITTED. This clinical summary was aggregated from multiple sources. Caution should be exercised in using it in the provision of clinical care. This summary normalizes information from multiple sources, and as a consequence, information in this document may materially change the coding, format and clinical context of patient data. In addition, data may be omitted in some cases. CLINICAL DECISIONS SHOULD BE BASED ON THE PRIMARY CLINICAL RECORDS. [facility]. provides no warranty or guarantee of the accuracy or completeness of information in this document.
== END 2024-02-23 11:01 | disposition home or self-care (01) ==
LOC: MAMMO 11:00
PROVIDERS: PCP Family Medicine; Visit Provider Family Medicine
DX: Z12.31 Encounter for screening mammogram for malignant neoplasm of breast (principal)
CPT/HCPCS: 77063; 77067

== ENCOUNTER 2025-02-26 13:55 | Outpatient (OUT) | payer MEDICARE, OTHER, SELFPAY ==
--- OUTSIDE RECORDS SUMMARY | 2025-02-12 08:15 | XMS_ITS | Encounter Summary ---
Author Organization [facility] Coherent [facility] tem Address [id number] [address] [place] [address] Care Team Providers Care Gaming Worker Name Role Phone Noam Granados DO Primary Care Provider [phone] Reason for Visit * ReasonCommentsHyperlipidemiaHypertensioncv Encounter Details DateTypeDepartmentCare Team (Latest Contact Info)Xzsissbjcuc63/29/2025 9:15 AM EDTOffice Visit [facility] [address] [place] [address] Noam Granados DO [address], [place] [address] Essential hypertension (Primary Dx); Hypertensive kidney disease with stage 3b chronic kidney disease ([facility]); Gastroesophageal reflux disease without esophagitis; Hypercholesterolemia; Obesity, morbid ([facility]); BMI 35.0-35.9,adult; Tubular adenoma; Encounter for screening mammogram for malignant neoplasm of breast Social History Tobacco UseTypesPacks/DayYears UsedDateSmoking Tobacco: NeverSmokeless Tobacco: NeverAlcohol UseStandard Drinks/WeekCommentsNot Currently0 (1 standard drink = 0.6 oz pure alcohol)[facility] UtilitiesAnswerDate RecordedIn the past 12 months has the [place], gas, oil, or water [employer] threatened to shut off services in your home?No12/07/2023Social Connection and Isolation PanelAnswerDate RecordedIn a typical week, how many times do you talk on the phone with family, friends, or neighbors?More than three times a week11/10/2022How often do you get together with friends or relatives?Twice a week11/10/2022How often do you attend shinto or jain services?Never11/10/2022o you belong to any clubs or organizations such as shinto groups, unions, fraternal or athletic groups, or school groups?No 11/10/2022How often do you attend meetings of the clubs or organizations you belong to?Never11/10/2022re you , , , , never , or living with a partner?Tkotwwp4111/10/2022UDIT-CAnswerDate RecordedQ1: How often do you have a drink containing alcohol?Never04/07/2022Q2: How many drinks containing alcohol do you have on a typical day when you are drinking? Patient does not drink04/07/2022Q3: How often do you have six or more drinks on one occasion?Never04/07/2022verall Financial Resource Strain (CARDIA)AnswerDate RecordedHow hard is it for you to pay for the very basics like food, housing, medical care, and heating?Not hard at all04/07/2022HQ-2AnswerDate RecordedTotal Jzxft201Finmountainstar healthcare [place] of Occupational Health - Occupational Stress QuestionnaireAnswerDate RecordedDo you feel stress - tense, restless, nervous, or anxious, or unable to sleep at night because yourmind is troubled all the time - these days?Only a tzvshf3104/07/2022Exercise Vital SignAnswerDate Recorded On average, how many days per week do you engage in moderate to strenuous exercise (like a brisk walk)?5 days12/07/2023On average, how many minutes do you engage in exercise at this level?30 min12/07/2023RAPARE - TransportationAnswer Date RecordedIn the past 12 months, has lack of transportation kept you from medical appointments or from getting medications?No04/07/2022In the past 12 months, has lack of transportation kept you from meetings, work, or from getting things needed for daily living?No04/07/2022Housing InstabilityAnswerDate RecordedAre you worried or concerned that in the next two months you may not have stable housing that you own, rent or stay in as a part of a household?No 12/07/2023hildcareAnswerDate RecordedDo problems getting early childhood make it difficult for you to work or study?No04/07/2022EmploymentAnswerDate RecordedDo you need help finding a local career center and/or a training program?No 04/07/2022Hunger ScreeningAnswerDate RecordedWithin the past 12 months we worried whether our food would run out before we got money to buy more.Never True02/12/2025Within the past 12 months the food we bought just didn't last and we didn't have money to get more.Never True02/12/2025Purpose - LifeAnswerDate RecordedI have a purpose and direction in my life.Strongly Agree04/07/2022 CommentsUnknownSex and Gender InformationValueDate RecordedSex Assigned at BirthNot on fileLegal LopGqderx54/06/2015 11:38 AM EDTGender IdentityNot on fileSexual OrientationNot on filedocumented as of this encounter Last Filed Vital Signs Vital SignReadingTime TakenCommentsBlood Ohkftdmc371/6202/12/2025 9:27 AM EDT Ixhtx856502/12/2025 9:27 AM GFNPmevsjvrnsb93.4 ??C (97.6 ??F)02/12/2025 9:27 AM EDTRespiratory Bmsq5839 9:27 AM EDTOxygen Kyiqrxapez90%02/12/2025 9:27 AM EDTInhaled Oxygen Concentration--Uekvpa26.9 kg (187 lb 3.2 oz)02/12/2025 9:27 AM LQYAshsai307.9 cm (5' 0.98 )02/12/2025 9:27 AM EDTBody Mass Index35.39 02/12/2025 9:27 AM EDTdocumented in this encounter Progress Notes * Noam Granados, DO - 02/12/2025 9:15 AM EDT Subjective Patient ID: Hamida Field is a 70 y.o. female. Hamida presents today for CV recheck. She stopped taking the Mevacor. She did not have any problems with it. She ran out of refills and just bothered to never call for a renewal. She is taking her blood pressure medication amlodipine 5 mg daily. She only takes the lisinopril every so often when her blood pressure is elevated. She read that it could damage her kidneys so she was worried about gaurav t. She has no new problems to report. She stopped the famotidine because it was ineffective. She has restarted omeprazole bzqb-wql-rqaxezq daily. She has a history of hiatal hernia. She said she had 2 EGDs done many years ago. The following portions of the patient's history were reviewed and updated as appropriate: allergies, current medications, past family history, past medical history, past social history, past surgicalhistory, problem list, and medication reconciliation was completed including current medication andpost discharge medication. Review of Systems Objective Physical Exam Vitals reviewed. Constitutional: General: She is not in acute distress. Appearance: She is obese. She is not ill-appearing. HENT: Head: Normocephalic. Eyes: General: No scleral icterus. Extraocular Movements: Extraocular movements intact. Conjunctiva/sclera: Conjunctivae normal. Neck: Vascular: No carotid bruit. Cardiovascular: Rate and Rhythm: Normal rate and regular rhythm. Pulses: Normal pulses. Heart sounds: Normal heart sounds. No murmur heard. Pulmonary: Effort: Pulmonary effort is normal. No respiratory distress. Breath sounds: Normal breath sounds. No wheezing, rhonchi or rales. Musculoskeletal: Cervical back: Neck supple. Right lower leg: No edema. Left lower leg: No edema. Lymphadenopathy: Cervical: No cervical adenopathy. Skin: General: Skin is warm and dry. Findings: No lesion. Neurological: General: No focal deficit present. Mental Status: She is alert and oriented to person, place, and time. Psychiatric: Attention and Perception: Attention normal. Mood and Affect: Mood and affect normal. Speech: Speech normal. Behavior: Behavior normal. Behavior is cooperative. Thought Content: Thought content normal. Cognition and Memory: Cognition normal. Judgment: Judgment normal. Assessment/Plan Hamida was seen today for hyperlipidemia and hypertension. Diagnoses and all orders for this visit: Essential hypertension - Comprehensive metabolic panel; Future - Comprehensive metabolic panel Blood pressure at goal. I encouraged to take the lisinopril daily. If her blood pressure drops or is too low then we can cut back on the dosage. Check CMP. Hypertensive kidney disease with stage 3b chronic kidney disease ([facility]) - Microalbumin - Albumin: Creatinine Urine Ratio; Future - Microalbumin - Albumin: Creatinine Urine Ratio Blood pressure at goal. Check CMP and ACR. Gastroesophageal reflux disease without esophagitis She has a history of hiatal hernia. If she does not take the omeprazole every day she has recurrence of symptoms. We discussed risks of daily PPI use such as fractures, C diff infection, chronic kidney disease among other problems. Also recommend an EGD even though it has been 20 some years since she had one but she declined. Can not rule out precancerous or cancerous changes of her esophagus. Hypercholesterolemia - Lipid profile; Future - Lipid profile Check lipid panel Obesity, morbid ([facility]) She is morbidly obese. She would benefit from weight loss. Diet, exercise and weight loss discussedand encouraged. Patient noted to have elevated BMI and the following intervention(s) were applied: encouragement toexercise and prescribed diet education. BMI 35.0-35.9,adult As above Tubular adenoma She is due for a colonoscopy but she declined. She does not want anymore colon cancer screenings atthis time. Risks discussed. Encounter for screening mammogram for malignant neoplasm of breast - Mammography screening bilateral with CAD; Future Check mammogram to screen for breast cancer. She would pursue further evaluation and treatment if needed. documented in this encounter Plan of Treatment NameTypePriorityAssociated DiagnosesOrder ScheduleMammography screening bilateral with CADImagingRoutine Encounter for screening mammogram for malignant neoplasm of breast Expected: 02/12/2025, Expires: 02/12/2026documented as of this encounter Procedures Procedure NamePriorityDate/TimeAssociated DiagnosisCommentsMICROALBUMIN / CREATININE URINE TNAIQQttrtzm10/29/2025 10:05 AM EDT Hypertensive kidney disease with stage 3b chronic kidney disease (CMS-HCC) LIPID YTATLQXDeymiet85/29/2025 10:05 AM EDT Hypercholesterolemia COMPREHENSIVE METABOLIC LOCFBRsrozbq68/ 10:05 AM EDT Essential hypertension documented in this encounter Results * Microalbumin - Albumin: Creatinine Urine Ratio (02/12/2025 10:05 AM EDT) ComponentValueRef RangeTest MethodAnalysis TimePerformed AtPathologist SignatureURINE CREATININE,RDM39.64mg/dL02/12/2025 7:[address] [facility]ORATORYMALB/CREAT RATIO02/12/2025 7:[address] [facility] LABORATORYComment:Urine Microalbumin / Creatinine ratio not calculated due to non-numeric component.MICROALBUMIN, URINE<0.70.0 - 1.9 mg/dL02/12/2025 7:[address] [facility] LABORATORYSpecimen (Source)Anatomical Location / LateralityCollection Method / VolumeCollection TimeReceived Time UrineUrine specimen collection, clean catch / Zmwcnql2202/12/2025 10:05 AM EDT 02/12/2025 10:05 AM EDT Narrative Authorizing ProviderResult TypeResult StatusDennis G Furlong DOURINE ORDERABLES Final ResultPerforming OrganizationAddressCity/State/ZIP CodePhone Number [facility] [address] [place] [address], * (ABNORMAL) Lipid profile (02/12/2025 10:05 AM EDT)ComponentValueRef RangeTest MethodAnalysis TimePerformed AtPathologist WdrlzooeqRPYNMBOYEGH809(H)150 - 200 mg/dL02/12/2025 7:[address] [facility] CHJUOANOILDGUSAVHMJEKA351 27 - 150 mg/dL02/12/2025 7:[address] LABORATORYHDL NINNGGFKIYM76>39 mg/dL02/12/2025 7:[address] [facility]ORATORYComment: HDL <40 mg/dL - High Risk HDL > or = 40mg/dL- Desirable HDL >60 mg/dL - Negative Risk LDL (CALC)194(H)<130 mg/dL02/12/2025 7:[address] [facility]ORATORYComment: LDL <100 mg/dL - Desirable LDL >160 mg/dL - High Risk CHOLESTEROL:HDL5.1(H)1.0 - 5.010 7:[address] [facility] LABORATORYVERY LOW QIFWTBUVFPK817 - 30 mg/dL02/12/2025 7:[address] [facility] LABORATORYSpecimen (Source)Anatomical Location / Laterality Collection Method / VolumeCollection TimeReceived TimeBloodVenous blood / Orxqgdp4602/12/2025 10:05 AM EDT1 10:05 AM EDT Narrative Authorizing ProviderResult TypeResult StatusDennis G Furlong DOLAB BLOOD ORDERABLESFinal ResultPerforming OrganizationAddressCity/State/ZIP CodePhone Number [facility] [address] [place] [address], * (ABNORMAL) Comprehensive metabolic panel (02/12/2025 10:05 AM EDT)Component ValueRef RangeTest MethodAnalysis TimePerformed AtPathologist SignatureSODIUM 022071 - 146 mmol/L1 7:[address] [facility] POTASSIUM4.83.5 - 5.0 mmol/L1 7:[address] [facility] MOBXAUCGLSIDDXXUGH74783 - 109 mmol/L1 7:[address] LABORATORYCARBON CAZLSCD9575 - 32 mmol/L1 7:[address] LABORATORYANION GAP85 - 15 mmol/L1 7:44 PM EDT [facility] LABORATORYBLOOD UREA KDTQJGKX901 - 27 mg/dL02/12/2025 7:[address] [facility] LABORATORYCREATININE1.33(H)0.40 - 1.00 mg/dL02/12/2025 7:[address] LABORATORYComment:METHOD TRACEABLE TO IDMS VLPDVAJDQAJCJWL6580 - 99 mg/dL02/12/2025 7:[address] [facility] LABORATORYCALCIUM9.38.5 - 10.5 mg/dL02/12/2025 7:44 PM EDT [facility] LABORATORYTOTAL PROTEIN7.36.0 - 8.0 g/dL02/12/2025 7:[address] LABORATORYALBUMIN4.13.2 - 5.3 g/dL 02/12/2025 7:[address] [facility] LABORATORYALKALINE PHOSPHATASE 8039 - 130 U/L1 7:[address] [facility] KYDICPYPJFALS56 <=41 U/L1 7:[address] [facility] EEHGLGBAMAFHA18<=31 U/L 02/12/2025 7:[address] [facility] LABORATORYBILIRUBIN,TOTAL0.40.3 - 1.2 mg/dL02/12/2025 7:[address] [facility]ORYEGFR Non- Race Pcidpsvni49(L)>=60 ml/min/1.73sq.m1 7:[address] [facility] LABORATORYComment: Reported eGFR is based on the CKD-EPI 2020 equation that does not use a race coefficient. Specimen (Source)Anatomical Location / LateralityCollection Method / Volume Collection TimeReceived TimeBloodVenous blood / Ionlxll0502/12/2025 10:05 AM EDT 02/12/2025 10:05 AM EDT Narrative Authorizing ProviderResult TypeResult StatusDennis G Jitendrakaden DOLAB BLOOD ORDERABLESFinal ResultPerforming OrganizationAddressCity/State/ZIP CodePhone Number [facility] [address] [place] [phone], documented in this encounter Visit Diagnoses Diagnosis Essential hypertension- Primary Unspecified essential hypertension Hypertensive kidney disease with stage 3b chronic kidney disease ([facility]) Gastroesophageal reflux disease without esophagitis Esophageal reflux Hypercholesterolemia Pure hypercholesterolemia Obesity, morbid ([facility]) Morbid obesity BMI 35.0-35.9,adult Tubular adenoma Benign neoplasm of unspecified site Encounter for screening mammogram for malignant neoplasm of breast documented in this encounter Additional Health Concerns AssessmentNoted TimePHQ-9 Depression Total Score: 9:26 AM EDTA Body Mass Index follow-up plan has been documented for the ffarpgf4402/12/2025 12:11 PM EDTdocumented as of this encounter Care Teams Team MemberRelationshipSpecialtyStart DateEnd Date Furlong Noam Dorsey DO [address] [place] [address] PCP - GeneralPaul [facility]. [facility] Bwvekiid17/21/22documented as of this encounter
--- NOTE | 2025-02-26 13:57 | MM_ITS ---
Patient Name: HAYLEE VICENTE MR#: [id number] : 1955 Exam Date: 02/26/2025 Ordering Doctor: DR IGNACIO DSOUZA RADIOLOGY REPORT PROCEDURE: MM TOMOSYNTHESIS SCREENING BI COMPARISON: MM TOMOSYNTHESIS SCREENING BI, 02/23/2024. MM TOMOSYNTHESIS SCREENING BI, 02/14/2023. MG MAMM SCREEN 3D HAYDEE CAD, 03/17/2021. MG MAMM HAYDEE SCRN W CAD DIG, 01/07/2014. INDICATIONS: Screening for malignant neoplasm Calculator Name [facility] Breast Cancer Risk Assessment Tool 5 Year Breast Cancer Risk 1.60% Lifetime Breast Cancer Risk 4.30% Personal Breast Cancer No Personal Ovarian Cancer No Treatments None Family Cancers None LOCATION: [facility] BREAST COMPOSITION: There are scattered areas of fibroglandular density. FINDINGS: RIGHT BREAST: No significant suspicious finding. Benign-appearing calcification is present. LEFT BREAST: No significant suspicious finding. Benign-appearing calcification is present. DIAGNOSTIC CATEGORY 2--BENIGN FINDING. NO CHANGE FROM COMPARISON. RECOMMENDATIONS: ROUTINE MAMMOGRAM AND CLINICAL EVALUATION IN 12 MONTHS. Dictated by: Robert Coley MD on 02/26/2025 at 16:29 Approved by: Robert Coley MD on 02/26/2025 at 16:30
--- OUTSIDE RECORDS SUMMARY | 2025-02-26 13:58 | XMS_ITS | Encounter Summary ---
Author Organization [facility] tem Address [id number] [address] [place] [address] Care Team Providers Care Machine Design Engineer Name Role Phone Noam Granados Primary Care Provider + [phone] Encounter Details DateTypeDepartmentCare Team (Latest Contact Info)Cttdxjrwwdq16/29/2025Telephone [facility] [address] [place] [phone] Luz Coffman CMA Social History Tobacco UseTypesPacks/DayYears UsedDateSmoking Tobacco: NeverSmokeless Tobacco: NeverAlcohol UseStandard Drinks/WeekCommentsNot Currently0 (1 standard drink = 0.6 oz pure alcohol)[facility] UtilitiesAnswerDate RecordedIn the past 12 months has the electric, gas, oil, or water company threatened to shut off services in your home?No12/07/2023Social Connection and Isolation PanelAnswerDate RecordedIn a typical week, how many times do you talk on the phone with family, friends, or neighbors?More than three times a week11/10/2022How often do you get together with friends or relatives?Twice a week11/10/2022How often do you attend judaism or anabaptist services?Never11/10/2022o you belong to any clubs or organizations such as judaism groups, unions, fraternal or athletic groups, or school groups?No 11/10/2022How often do you attend meetings of the clubs or organizations you belong to?Never11/10/2022re you , , , , never , or living with a partner?Itfudjx38/27/2023AUDIT-CAnswerDate RecordedQ1: How often do you have a drink containing alcohol?Never04/07/2022Q2: How many drinks containing alcohol do you have on a typical day when you are drinking? Patient does not drink04/07/2022Q3: How often do you have six or more drinks on one occasion?Never2Overall Financial Resource Strain (CARDIA)AnswerDate RecordedHow hard is it for you to pay for the very basics like food, housing, medical care, and heating?Not hard at all04/07/2022HQ-2AnswerDate RecordedTotal Tbqgj026[facility] [place] of Occupational Health - Occupational Stress QuestionnaireAnswerDate RecordedDo you feel stress - tense, restless, nervous, or anxious, or unable to sleep at night because yourmind is troubled all the time - these days?Only a nexkaa9504/07/2022Exercise Vital SignAnswerDate Recorded On average, how many [...] of a household?No 12/07/2023hildcareAnswerDate RecordedDo problems getting child care sitter make it difficult for you to work [...] InformationValueDate RecordedSex Assigned at BirthNot on fileLegal ZnbIkpgzp00/06/2015 11:38 AM EDTGender IdentityNot on fileSexual OrientationNot on filedocumented as of this encounter Miscellaneous Notes * Telephone Encounter - Luz Coffman CMA - 02/12/2025 10:16 AM EDT Pt wanted a mammogram order sent to [facility], she stated she forgot to ask you during her appt today. Thank you. documented in this encounter Plan of Treatment Not on file documented as of this encounter Visit Diagnoses Not on filedocumented in this encounter Additional Health Concerns AssessmentNoted TimePHQ-9 Depression Total Score: 9:26 AM EDTA Body Mass Index follow-up plan has been documented for the icfmlib5802/12/2025 12:11 PM EDTdocumented as of this encounter Care Teams Team MemberRelationshipSpecialtyStart DateEnd Date Noam Granados DO [address] [facility] [place] [address] PCP - GeneralFamily Kjdiotgp05/21/22documented as of this encounter
--- OUTSIDE RECORDS SUMMARY | 2025-02-26 13:58 | XMS_ITS | Encounter Summary ---
Author Organization [facility] tem Address [facility] [address] [place] [address] Care Team Providers Care Health Sciences Dean Name Role Phone Noam Granados DO Primary Care Provider + [phone] Encounter Details DateTypeDepartmentCare Team (Latest Contact Info)Uuphibihnwr02/30/2025Orders Only [facility] Internal Medicine - Family Medicine [address] [place] [address] Noam Granados DO [address] [place] [address] Social History Tobacco UseTypesPacks/DayYears UsedDateSmoking Tobacco: NeverSmokeless Tobacco: NeverAlcohol UseStandard Drinks/WeekCommentsNot Currently0 (1 standard drink = 0.6 oz pure alcohol)[facility] UtilitiesAnswerDate RecordedIn the past 12 months has the [address] [employer], gas, oil, or water [employer] threatened to shut off services in your home?No12/07/2023Social Connection and Isolation PanelAnswerDate RecordedIn a typical week, how many times do you talk on the phone with family, friends, or neighbors?More than three times a week11/10/2022How often do you get together with friends or relatives?Twice a week11/10/2022How often do you attend spiritism or judaism services?Never11/10/2022o you belong to any clubs or organizations such as spiritism groups, unions, fraternal or athletic groups, or school groups?No 11/10/2022How often do you attend meetings of the clubs or organizations you belong to?Never11/10/2022re you , , , , never , or living with a partner?Yrdnbcw7411/10/2022UDIT-CAnswerDate RecordedQ1: How often do you have a [...] care, and heating?Not hard at all04/07/2022HQ-2AnswerDate RecordedTotal Ltopg999[facility] [place] of Occupational Health - Occupational Stress QuestionnaireAnswerDate RecordedDo you feel stress - tense, restless, nervous, or anxious, or unable to sleep at night because yourmind is troubled all the time - these days?Only a usnees5004/07/2022Exercise Vital SignAnswerDate Recorded On average, how many [...] of a household?No 12/07/2023hildcareAnswerDate RecordedDo problems getting childrens club attendant make it difficult for you to work or study?No04/07/2022EmploymentAnswerDate RecordedDo you need help finding a local career center and/or a training program?No 12/22/2022Hunger ScreeningAnswerDate RecordedWithin the past 12 months we [...] InformationValueDate RecordedSex Assigned at BirthNot on fileLegal SbaIsboso69/06/2015 11:38 AM EDTGender IdentityNot on fileSexual OrientationNot on filedocumented as of this encounter Plan of Treatment Not on file documented as of this encounter Visit Diagnoses Not on filedocumented in this encounter Additional Health Concerns AssessmentNoted TimePHQ-9 Depression Total Score: 9:26 AM EDTA Body Mass Index follow-up plan has been documented for the ezzsepq0102/12/2025 12:11 PM EDTdocumented as of this encounter Care Teams Team MemberRelationshipSpecialtyStart DateEnd Date Noam Granados DO [address] [facility] [place] [address] PCP - GeneralFamily Vhyodeqt07/21/22documented as of this encounter
--- OUTSIDE RECORDS SUMMARY | 2025-02-26 13:58 | XMS_ITS | Clinical Summary ---
Author Organization [facility] Address [address] [place] [address] Care Team Providers Care Air Moving Technician Name Role Phone Unavailable Primary Care Provider Unavailabl e Social History Tobacco UseTypesPacks/DayYears UsedDateSmoking Tobacco: Never Assessed CommentsUnknownSex and Gender InformationValueDate RecordedSex Assigned at Not on fileLegal QopKgibif82/15/2023 6:40 PM EDTGender IdentityNot on fileSexual OrientationNot on file Last Filed Vital Signs Vital SignReadingTime TakenCommentsBlood Pressure--Pulse--Temperature-- Respiratory Rate--Oxygen Saturation--Inhaled Oxygen Concentration--Yxdjvl08.3 kg (155 lb)03/11/2020 12:00 PM EWUXnequz107.5 cm (5' 2 )03/11/2020 12:00 PM ESTBody Mass Index28.35105/11/2019 12:00 PM EST Plan of Treatment Not on file Insurance
--- OUTSIDE RECORDS SUMMARY | 2025-02-26 13:58 | XMS_ITS | Clinical Summary ---
Author Organization [employer] tem Address [id number] [address] [place] [address] Care Team Providers Care Medical Housekeeper Name Role Phone BlancaNoam alfonso Primary Care Provider [phone] Allergies No known active allergies Medications MedicationSigDispense QuantityRefillsLast FilledStart DateEnd DateStatus calcium-vit D3-mag gly-zinc 400 mg-83.3 mcg -166.7 mg capsule daily.Active coenzyme Q10 (COQ-10) 100 mg capsule CoQ-10 1 QDActive omeprazole (PriLOSEC) 20 mg capsule Take 1 capsule (20 mg total) by mouth daily as needed (heartburn).Active lisinopriL (PRINIVIL,ZESTRIL) 40 mg tablet Indications:Essential (primary) hypertensionTAKE 1 TABLET (40 MG TOTAL) BY MOUTH IN THE MORNING 90 tablet 5Active hydrOXYzine (ATARAX) 25 mg tablet Indications:Anxiety disorder, unspecifiedTAKE 1 TABLET BY MOUTH EVERY 8 HOURS NEEDED FOR ANXIETY 270 tablet 5Active amLODIPine (NORVASC) 5 mg tablet Indications:Essential (primary) hypertensionTAKE 1 TABLET BY MOUTH EVERY DAY 90 tablet 5Active baclofen (LIORESAL) 10 mg tablet Indications:Unspecified thoracic, thoracolumbar and lumbosacral intervertebral disc disorderTAKE 1 TABLET BY MOUTH TWICE A DAY NEEDED 180 tablet 5Active rosuvastatin (CRESTOR) 10 mg tablet Take 1 tablet (10 mg total) by mouth nightly. 90 tablet 5Active lovastatin (MEVACOR) 20 mg tablet Indications:Pure hypercholesterolemia, unspecifiedtake 1 tablet by mouth every day 90 tablet Discontinued(Patient Stopped On Own) famotidine (PEPCID) 40 mg tablet Indications:Gastroesophageal reflux disease without esophagitisTAKE 1 TABLET (40 MG TOTAL) BY MOUTH IN THE MORNING 90 tablet Discontinued(Therapy completed) Active Problems ProblemNoted DateDiagnosed DateObesity, pabeft7502/12/2025lass 1 obesity due to excess calories with serious comorbidity and body mass index (BMI) of 34.0 to 34.9 in adult12/07/2023Hypertensive kidney disease with stage 3b chronic kidney dtpvpdh4702/16/20233118Pkkfvgp84/22/2022islocation of hand joint04/07/2022Epstein- Winston virus walttajmy06/22/2022Fibrocystic disease of usrjsv2204/07/2022 Gastroesophageal reflux bseuobu4504/07/2022Lumbar disc xrhyzzrb24/22/2022 Mylscovxmntuepjuxfxq60/22/2022Injury of wrist04/07/2022Laceration of finger 04/07/2022Traumatic dislocation of qukiec8004/07/2022Urethral iwpgagci51/22/2022 Qoxyfpunxx67/04/2021uperficial lwdyhxlnjrmvcgrc67/08/2018Tubular adenoma 12/07/2015Essential yxaaqssvcsoj13/08/2016Hiatal hernia Resolved Problems ProblemNoted DateDiagnosed DateResolved DateChronic esmuwrtrhz20/22/2016 12/07/2023 Encounters DateTypeDepartmentCare IyerTbxlporsjnd90/30/2025Orders Only [facility] [address] [place] [address] Noam Granados DO 02/13/2025Results Follow-Up [facility] [address] [place] [address] Noam Granados DO Microalbumin - Albumin: Creatinine Urine Ratio, Lipid profile, Comprehensive metabolic panel02/12/2025 9:15 AM EDTOffice Visit [facility] [address] [place] [address] Noam Granados DO Essential hypertension (Primary Dx); Hypertensive kidney disease with stage 3b chronic kidney disease ([facility]); Gastroesophageal reflux disease without esophagitis; Hypercholesterolemia; Obesity, morbid ([facility]); BMI 35.0-35.9,adult; Tubular adenoma; Encounter for screening mammogram for malignant neoplasm of cgzjtx6302/12/2025 Orders Only [facility] [address] [place] [address] Noam Granados DO 02/12/2025Telephone [facility] Family [facility] [address] [place] [address] Luz Coffman [facility] 02/12/20256837Npcawu03/21/2025Refill [facility] [address] [place] [address] Noam Granados DO Essential (primary) hypertension; Anxiety disorder, unspecified; Unspecified thoracic, thoracolumbar and lumbosacral intervertebral disc disorder from Last 3 Months Immunizations ImmunizationAdministration DatesNext DueInfluenza (IM) Preservative Free 01/29/2016,02/18/2015Influenza High Dose Preservative Free IM02/05/2019 Influenza, Im Trivalent Ldhljoaqgxdk86/07/2013Influenza, Injectable, Mdck, Preservative Free, Quad03/08/2017Influenza, Injectable, quadrivalent (PF) 02/23/2018Pneumococcal Conjugate 13-Qznhhg9102/11/2019Zoster Live02/16/2016, 01/06/2016 Family History Medical HistoryRelationNameCommentsHeart diseaseFatherProstate cancerFatherSkin cancerFatherHypertensionMotherRelationNameStatusCommentsFatherDeceasedMother Social History Tobacco UseTypesPacks/DayYears UsedDateSmoking Tobacco: NeverSmokeless Tobacco: Never Tobacco Cessation:Counseling Given: Not Answered Alcohol UseStandard Drinks/WeekCommentsNot Currently0 (1 standard drink = 0.6 oz pure alcohol)C UtilitiesAnswerDate RecordedIn the past 12 months has [...] relatives?Twice a week11/10/2022How often do you attend gnosticist or muslim services?Never11/10/2022o you belong to any clubs or organizations such as gnosticist groups, unions, fraternal or athletic groups, or school groups?No 11/10/2022How often do you attend meetings of the clubs or organizations you belong to?Never11/10/2022re you , , , , never , or living with a partner?Iayvkke6911/10/2022UDIT-CAnswerDate RecordedQ1: How often do you have a [...] care, and heating?Not hard at all04/07/2022HQ-2AnswerDate RecordedTotal Imzom878Finjordan [facility] [place] of Occupational Health - Occupational Stress QuestionnaireAnswerDate RecordedDo you feel stress - tense, restless, nervous, or anxious, or unable to sleep at night because yourmind is troubled all the time - these days?Only a olyddj3004/07/2022Exercise Vital SignAnswerDate Recorded On average, how many [...] of a household?No 12/07/2023hildcareAnswerDate RecordedDo problems getting 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 work [...] InformationValueDate RecordedSex Assigned at BirthNot on fileLegal CnoLgtxdv66/06/2015 11:38 AM EDTGender IdentityNot on fileSexual OrientationNot on file Last Filed Vital Signs Vital SignReadingTime TakenCommentsBlood Rnolnetu922/6202/12/2025 9:27 AM EDT Ethpl062702/12/2025 9:27 AM MDEEybedcuixux83.4 ??C (97.6 ??F)02/12/2025 9:27 AM EDTRespiratory Bfwv4325 9:27 AM EDTOxygen Fjxcmtdfop06%02/12/2025 9:27 AM EDTInhaled Oxygen Concentration--Xbtxuf19.9 kg (187 lb 3.2 oz)02/12/2025 9:27 AM ETFZnqmhe200.9 cm (5' 0.98 )02/12/2025 9:27 AM EDTBody Mass Index35.39 02/12/2025 9:27 AM EDT Plan of Treatment Health MaintenanceDue DateLast DoneCommentsRSV ( or age 60+ yrs) (1 - Risk 60-74 years 1-dose series)2014Medicare Annual Wellness Visit /olon Cancer Screening 3 Year Anwpdfsxr63/01/2026Postponed from 1999 (Patient Refused)DTaP,Tdap and Td Vaccines (1 - Tdap)04/17/2025 Postponed from 1973 (Patient Refused)Ethctlmva17/11/2023, 02/14/2023ostponed from 02/22/2025 (Patient Refused)Zoster (Shingles) Vaccine (2 of 3), 01/06/2016Postponed from 04/12/2016 (Patient Refused)Influenza Apjtazd04, 02/23/2018, 03/08/2017, Additional history existsPostponed from 12/16/2024 (Patient Refused)Adult BMI Follow Up [facility] BMI Bfocunuhy17 Depression Exlwanwwu98Fall Risk Qsswxtfdk98 Tobacco Hxqhuiamx01 Medical Devices Not on file Procedures Procedure NamePriorityDate/TimeAssociated DiagnosisCommentsCOMPREHENSIVE METABOLIC OTPRZEdwdoem11/29/2025 10:05 AM EDT Essential hypertension LIPID ABTSNQRSbwhvie65/29/2025 10:05 AM EDT Hypercholesterolemia MICROALBUMIN / CREATININE URINE ZPDPZObmrrhm26/29/2025 10:05 AM EDT Hypertensive kidney disease with stage 3b chronic kidney disease (CMS-HCC) MAMM SCREENING BILATERAL W PFYFoydnyp38/31/2023 Encounter for screening mammogram for malignant neoplasm of breast from Last 3 Months or Most Recently Relevant to Health Maintenance Results * Microalbumin - Albumin: Creatinine Urine Ratio (02/12/2025 10:05 AM EDT) ComponentValueRef RangeTest MethodAnalysis TimePerformed AtPathologist SignatureURINE CREATININE,RDM39.64mg/dL02/12/2025 7:54 PM [facility] LABORATORYMALB/CREAT RATIO02/12/2025 7:54 PM [facility] LABORATORYComment:Urine Microalbumin / Creatinine ratio not calculated due to non-numeric component.MICROALBUMIN, URINE<0.70.0 - 1.9 mg/dL02/12/2025 7:54 PM [facility] LABORATORYSpecimen (Source)Anatomical Location / LateralityCollection Method / VolumeCollection TimeReceived Time UrineUrine specimen collection, clean catch / Igqhrtc6402/12/2025 10:05 AM EDT 02/12/2025 10:05 AM EDT Narrative Authorizing ProviderResult TypeResult StatusDennis G Furlong DOURINE ORDERABLES Final ResultPerforming OrganizationAddressCity/State/ZIP CodePhone Number [facility] [address] [place] [address], * (ABNORMAL) Lipid profile (02/12/2025 10:05 AM EDT)ComponentValueRef RangeTest MethodAnalysis TimePerformed AtPathologist EtktmbeiiCHNNELBMNQR165(H)150 - 200 mg/dL02/12/2025 7:44 PM [facility] KVKBLZQUAQXMOFMWWJQEHW682 27 - 150 mg/dL02/12/2025 7:44 PM [facility] LABORATORYHDL JZOEWSITALW80>39 mg/dL02/12/2025 7:44 PM [facility]ORATORYComment: HDL <40 mg/dL - High Risk HDL > or = 40mg/dL- Desirable HDL >60 mg/dL - Negative Risk LDL (CALC)194(H)<130 mg/dL02/12/2025 7:44 PM [facility] LABORATORYComment: LDL <100 mg/dL - Desirable LDL >160 mg/dL - High Risk CHOLESTEROL:HDL5.1(H)1.0 - 5.010 7:44 PM [facility] LABORATORYVERY LOW QIBKXLAPDGT505 - 30 mg/dL02/12/2025 7:44 PM [facility] LABORATORYSpecimen (Source)Anatomical Location / Laterality Collection Method / VolumeCollection TimeReceived TimeBloodVenous blood / Msalwvs9202/12/2025 10:05 AM EDT1 10:05 AM EDT Narrative Authorizing ProviderResult TypeResult StatusDennis G Furlong DOLAB BLOOD ORDERABLESFinal ResultPerforming OrganizationAddressCity/State/ZIP CodePhone Number [facility] [address] [place] [address], * (ABNORMAL) Comprehensive metabolic panel (02/12/2025 10:05 AM EDT)Component ValueRef RangeTest MethodAnalysis TimePerformed AtPathologist SignatureSODIUM 688644 - 146 mmol/L1 7:44 PM [facility] POTASSIUM4.83.5 - 5.0 mmol/L1 7:44 PM [facility] VOHYCQMWCQOEGSTXOU64427 - 109 mmol/L1 7:44 PM [facility] LABORATORYCARBON FJVMQFM6371 - 32 mmol/L1 7:44 PM [facility] LABORATORYANION GAP85 - 15 mmol/L1 7:44 PM EDT [facility]ORATORYBLOOD UREA IRFAQARQ639 - 27 mg/dL02/12/2025 7:44 PM [facility] LABORATORYCREATININE1.33(H)0.40 - 1.00 mg/dL02/12/2025 7:44 PM [facility] LABORATORYComment:METHOD TRACEABLE TO IDMS YXBEHPNHUKFAQHZ3221 - 99 mg/dL02/12/2025 7:44 PM [facility] LABORATORYCALCIUM9.38.5 - 10.5 mg/dL02/12/2025 7:44 PM EDT [facility]ATORYTOTAL PROTEIN7.36.0 - 8.0 g/dL02/12/2025 7:44 PM [facility] LABORATORYALBUMIN4.13.2 - 5.3 g/dL 02/12/2025 7:44 PM [facility] LABORATORYALKALINE PHOSPHATASE 8039 - 130 U/L1 7:44 PM [facility] RTNLHBGJGARNQ13 <=41 U/L1 7:44 PM [facility] PMAOYURYEIOKZ56<=31 U/L 02/12/2025 7:44 PM [facility] LABORATORYBILIRUBIN,TOTAL0.40.3 - 1.2 mg/dL02/12/2025 7:44 PM [facility]ORYEGFR Non- Race Ofqgcznwl26(L)>=60 ml/min/1.73sq.m1 7:44 PM [facility] LABORATORYComment: Reported eGFR is based on the CKD-EPI 2020 equation that does not use a race coefficient. Specimen (Source)Anatomical Location / LateralityCollection Method / Volume Collection TimeReceived TimeBloodVenous blood / Hbfswis5302/12/2025 10:05 AM EDT 02/12/2025 10:05 AM EDT Narrative Authorizing ProviderResult TypeResult StatusDengermaine Sunita Furlong DOLAB BLOOD ORDERABLESFinal ResultPerforming OrganizationAddressCity/State/ZIP CodePhone Number [facility] [address] [place] [address], * Mammography screening bilateral with CAD (02/14/2023)Anatomical Region LateralityModalityBreastBilateralMammography Narrative Authorizing ProviderResult TypeResult StatusDengermaine Sunita Hamlong DOIMG MAMMOGRAPHY ORDERABLESFinal Result from Last 3 Months or Most Recently Relevant to Health Maintenance Insurance * Guarantor: Hamida Field TypeRelation to PatientDate of BirthPhone Billing AddressPersonal/MyipmqXveb1955 [address] [address] [place] [address] Care Teams Team MemberRelationshipSpecialtyStart DateEnd Date Noam Granados DO [address], [facility] [address] PCP - GeneralFamily Jdjymwro69/21/22
--- OUTSIDE RECORDS SUMMARY | 2025-02-26 13:58 | XMS_ITS | Encounter Summary ---
Author Organization [facility] tem Address [id number] [address] [place] [address] Care Team Providers Care Shop Tech Name Role Phone Noam Granados DO Primary Care Provider + [phone] Encounter Details DateTypeDepartmentCare Team (Latest Contact Info)Spolehixajn24/29/2025Orders Only [facility] [address] [place] [address] Noam Granados DO [address], [place] [address] Social History Tobacco UseTypesPacks/DayYears UsedDateSmoking Tobacco: NeverSmokeless Tobacco: NeverAlcohol UseStandard Drinks/WeekCommentsNot Currently0 (1 standard drink = 0.6 oz pure alcohol)[facility] UtilitiesAnswerDate RecordedIn the past 12 months has the [employer], gas, oil, or water [employer] threatened to shut off services in your home?No12/07/2023Social Connection and Isolation PanelAnswerDate RecordedIn a typical week, how many times do you talk on the phone with family, friends, or neighbors?More than three times a week11/10/2022How often do you get together with friends or relatives?Twice a week11/10/2022How often do you attend episcopal or yazidism services?Never11/10/2022o you belong to any clubs or organizations such as episcopal groups, unions, fraternal or athletic groups, or school groups?No 11/10/2022How often do you attend meetings of the clubs or organizations you belong to?Never11/10/2022re you , , , , never , or living with a partner?Knlbfvi4011/10/2022UDIT-CAnswerDate RecordedQ1: How often do you have a [...] care, and heating?Not hard at all04/07/2022HQ-2AnswerDate RecordedTotal Wltgg572Fingarfield memorial hospital [place] of Occupational Health - Occupational Stress QuestionnaireAnswerDate RecordedDo you feel stress - tense, restless, nervous, or anxious, or unable to sleep at night because yourmind is troubled all the time - these days?Only a uzgvrm8104/07/2022Exercise Vital SignAnswerDate Recorded On average, how many [...] of a household?No 12/07/2023hildcareAnswerDate RecordedDo problems 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 [...] InformationValueDate RecordedSex Assigned at BirthNot on fileLegal EfdAxmkue59/06/2015 11:38 AM EDTGender IdentityNot on fileSexual OrientationNot on filedocumented as of this encounter Plan of Treatment Not on file documented as of this encounter Visit Diagnoses Not on filedocumented in this encounter Additional Health Concerns AssessmentNoted TimePHQ-9 Depression Total Score: 9:26 AM EDTA Body Mass Index follow-up plan has been documented for the jbxqrju3502/12/2025 12:11 PM EDTdocumented as of this encounter Care Teams Team MemberRelationshipSpecialtyStart DateEnd Date Noam Granados DO [address] [facility] [place] [address] PCP - GeneralFamily Ijhnybik18/21/22documented as of this encounter
--- OUTSIDE RECORDS SUMMARY | 2025-02-26 13:58 | XMS_ITS | Encounter Summary ---
Author Organization [employer] [facility] tem Address [id number] [address] [place] [address] Care Team Providers Care Development Director Name Role Phone JitendraNoam leary Sunita [place] Primary Care Provider + [phone] Encounter Details DateTypeDepartmentCare Team (Latest Contact Info)Oknisvglsfj49/29/2025Travel Social History Tobacco UseTypesPacks/DayYears UsedDateSmoking Tobacco: NeverSmokeless Tobacco: NeverAlcohol UseStandard Drinks/WeekCommentsNot Currently0 (1 standard drink = 0.6 oz pure alcohol)[facility] UtilitiesAnswerDate RecordedIn the past 12 months has [...] relatives?Twice a week11/10/2022How often do you attend oriental orthodox or anabaptist services?Never11/10/2022o you belong to any clubs or organizations such as oriental orthodox groups, unions, fraternal or athletic groups, or school groups?No 11/10/2022How often do you attend meetings of the clubs or organizations you belong to?Never11/10/2022re you , , , , never , or living with a partner?Jmqpbpu8111/10/2022UDIT-CAnswerDate RecordedQ1: How often do you have a [...] care, and heating?Not hard at all04/07/2022HQ-2AnswerDate RecordedTotal Bwtmj335Finut[facility] state hospital [place] of Occupational Health - Occupational Stress QuestionnaireAnswerDate RecordedDo you feel stress - tense, restless, nervous, or anxious, or unable to sleep at night because yourmind is troubled all the time - these days?Only a oukpfr3704/07/2022Exercise Vital SignAnswerDate Recorded On average, how many [...] of a household?No 12/07/2023hildcareAnswerDate RecordedDo problems 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 [...] InformationValueDate RecordedSex Assigned at BirthNot on fileLegal RveMigbpa53/06/2015 11:38 AM EDTGender IdentityNot on fileSexual OrientationNot on filedocumented as of this encounter Plan of Treatment Not on file documented as of this encounter Visit Diagnoses Not on filedocumented in this encounter Additional Health Concerns AssessmentNoted TimePHQ-9 Depression Total Score: 9:26 AM EDTA Body Mass Index follow-up plan has been documented for the limrqbr1702/12/2025 12:11 PM EDTdocumented as of this encounter Care Teams Team MemberRelationshipSpecialtyStart DateEnd Date Noam Granados DO [address] [facility], [place] [address] PCP - GeneralFamily Sxznwbqg72/21/22documented as of this encounter
--- OUTSIDE RECORDS SUMMARY | 2025-02-26 13:58 | XMS_ITS | Encounter Summary ---
Author Organization [facility] tem Address [id number] [address] [place] [address] Care Team Providers Care Associate Drafter Name Role Phone Noam Granados DO Primary Care Provider + [phone] Encounter Details DateTypeDepartmentCare Team (Latest Contact Info)Ijhjwjkmcqc66/30/2025Results [facility] [address] [place] [address] Noam Granados DO [address], [place] [address] Microalbumin - Albumin: Creatinine Urine Ratio, Lipid profile, Comprehensive metabolic panel Social History Tobacco UseTypesPacks/DayYears UsedDateSmoking Tobacco: NeverSmokeless Tobacco: NeverAlcohol UseStandard Drinks/WeekCommentsNot Currently0 (1 standard drink = 0.6 oz pure alcohol)[facility] UtilitiesAnswerDate RecordedIn the past 12 months has the [employer], oil, or water [employer] threatened to shut off services in your home?No12/07/2023Social Connection and Isolation PanelAnswerDate RecordedIn a typical week, how many times do you talk on the phone with family, friends, or neighbors?More than three times a week11/10/2022How often do you get together with friends or relatives?Twice a week11/10/2022How often do you attend restorationism or mormon services?Never11/10/2022o you belong to any clubs or organizations such as restorationism groups, unions, fraternal or athletic groups, or school groups?No 11/10/2022How often do you attend meetings of the clubs or organizations you belong to?Never11/10/2022re you , , , , never , or living with a partner?Luyfulp7111/10/2022UDIT-CAnswerDate RecordedQ1: How often do you have a [...] care, and heating?Not hard at all04/07/2022HQ-2AnswerDate RecordedTotal Dewzn450Fincastleview hospital [place] of Occupational Health - Occupational Stress QuestionnaireAnswerDate RecordedDo you feel stress - tense, restless, nervous, or anxious, or unable to sleep at night because yourmind is troubled all the time - these days?Only a qbjzei7204/07/2022Exercise Vital SignAnswerDate Recorded On average, how many [...] household?No 12/07/2023hildcareAnswerDate RecordedDo problems getting early childhood 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 [...] InformationValueDate RecordedSex Assigned at BirthNot on fileLegal DmlLniowm48/06/2015 11:38 AM EDTGender IdentityNot on fileSexual OrientationNot on filedocumented as of this encounter Plan of Treatment Not on file documented as of this encounter Visit Diagnoses Not on filedocumented in this encounter Additional Health Concerns AssessmentNoted TimePHQ-9 Depression Total Score: 9:26 AM EDTA Body Mass Index follow-up plan has been documented for the tblfikm8102/12/2025 12:11 PM EDTdocumented as of this encounter Care Teams Team MemberRelationshipSpecialtyStart DateEnd Date Noam Granados DO [address], [facility] [place] [address] PCP - GeneralFamily Zokbwaap77/21/22documented as of this encounter
== END 2025-02-26 13:56 | disposition home or self-care (01) ==
LOC: MAMMO 13:55
PROVIDERS: PCP Family Medicine; Visit Provider Family Medicine
DX: Z12.31 Encounter for screening mammogram for malignant neoplasm of breast (principal)
CPT/HCPCS: 77063; 77067